=== PATIENT | male | born 1975 | race Caucasian/White ===

== ENCOUNTER 2019-08-19 18:20 | Emergency (ER) | payer BC ==
[~2019-08-19] VITALS: Ht 182.9 cm; Wt 81.6 kg
[2019-08-19 18:29] VITALS: BP_SYST 154
--- NOTE | 2019-08-19 18:29 | NUR ---
Patient to ER bed 05 to gown for evaluation. Side rails up.
--- NOTE | 2019-08-19 18:38 | NUR ---
pt arrives to the ER w/ a lac over the left middle finger. Pt was working on a car when the injury occurred. No other c/o at the moment.
--- NOTE | 2019-08-19 18:40 | NUR ---
Dr Moon at bedside examining patient
[2019-08-19] MEDS ORDERED: DIPH-TET-PERTUS Vaccine 0.5 ML VIAL (ADACEL) I.M. ONE (18:45)
--- NOTE | 2019-08-19 18:50 | NUR ---
Patient transported to radiology via WC, accompanied by staff.
--- NOTE | 2019-08-19 19:18 | NUR ---
Report given to Elizabeth KIM. Pt in stabel condition
[2019-08-19] MEDS ORDERED: BACITRACIN 1 GM OINT TP ONE (19:43)
[2019-08-19 20:00] VITALS: BP_SYST 145
--- NOTE | 2019-08-19 20:00 | NUR ---
Patient given written and verbal discharge instructions per Dr. Moon and verbalizes understanding. ER MD discussed with patient the results and treatment provided. Patient in stable condition. ID arm band removed. Rx of Naproxyn given. Patient educated on pain management and to follow up with PMD. Pain Scale 1/10. Opportunity for questions provided and answered. Medication side effect fact sheet provided.
== END 2019-08-19 20:00 | disposition home or self-care (01) ==
LOC: SED 18:20
DX: S62.631A Displaced fracture of distal phalanx of left index finger, initial encounter for closed fracture (principal); F17.210 Nicotine dependence, cigarettes, uncomplicated; R03.0 Elevated blood-pressure reading, without diagnosis of hypertension; Z71.6 Tobacco abuse counseling; W22.8XXA Striking against or struck by other objects, initial encounter; Y93.89 Activity, other specified; Y92.89 Other specified places as the place of occurrence of the external cause; Y99.8 Other external cause status
CPT/HCPCS: 73140-TC; 90715; 99283